=== PATIENT | female | born 1945 | race Caucasian/White ===

== ENCOUNTER 2024-03-02 10:50 | Outpatient (CLI) | payer MEDICARE, OTHER | END 2024-03-02 23:59 | disposition critical access hospital (66) | LOC: EMS 10:50 | DX: R41.3 Other amnesia (principal) | CPT/HCPCS: A0425; A0429 ==

== ENCOUNTER 2024-03-02 11:27 | Emergency (ER) | payer MEDICARE, OTHER ==
--- NOTE | 2024-03-02 12:07 | ED Physician Documentation ---
History of Present Illness - Stated complaint Stated Complaint: AMS/MEMORY LOSS - Chief complaint Chief Complaint: Neuro - History obtained from History obtained from: Patient, Family - Treatment prior to arrival Treatment prior to arrival: Patient is a 78-year-old female presenting to the emergency department with past medical history remarkable for asthma, DINA presenting to the emergency department with significant shortness of breath that has been going on for multiple weeks but worsened within the last few days. Patient has used her nebulizer multiple times up to 6 times within the last 2 days. She notes some wheezing at home orthopnea and mild leg swelling. She on arrival has been saturating on room air at 98% no tachycardia or tachypnea noted. Decreased breath sounds on auscultation of the lungs. 1 + pitting edema notd to lower extremities Patient had positive troponin of 17.9 here in the emergency department. EKG does show left bundle branch block unsure if this is new patient does have history of pacemaker in place. - Additonal information Additional information: Patient is a 78-year-old female presenting to the emergency department history significant for asthma, atrial fibrillation, pacemaker in place presents to the emergency department with shortness of breath confusion. Patient has been increasing the use of her nebulizers at home for the last 2 days. She notes she has been struggling with a cough going on for about 3 weeks now. She describes as nonproductive she denies any chest pain with it. She notes some wheezing at home and has been using her nebulizer up to 6 times a day. She has some mild leg swelling orthopnea x 2. Patient has history significant for DINA as well but has been compliant with her CPAP at home. She denies any fevers chills nausea or vomiting. PD PAST MEDICAL HISTORY - Past Medical History Cardiovascular: Hypertension, Atrial fibrillation Respiratory: Asthma, Pneumonia, Sleep apnea, CPAP use - Past Surgical History Ortho: Knee replacement Cardiovascular: Pacemaker - Present Medications Home Medications: Ambulatory Orders Medication Instructions Recorded Confirmed Albuterol Sulf [Ventolin Hfa 1 - 2 puffs INH Q4HR PRN 03/02/24 03/02/24 Inhaler] Apixaban [Eliquis] 5 mg PO BID 03/02/24 03/02/24 Benralizumab [Fasenra Pen] 30 mg SQ ONCE 03/02/24 03/02/24 Benzonatate [Tessalon] 100 mg PO TID #7 cap 03/02/24 Budesonide/Formoterol Fumarate 2 puffs INH BID 03/02/24 03/02/24 [Breyna 160-4.5 Mcg Inhaler] Cetirizine [ZyrTEC] 10 mg PO DAILY 03/02/24 03/02/24 Dapagliflozin Propanediol [Farxiga] 10 mg PO DAILY 03/02/24 03/02/24 Furosemide [Lasix] 20 mg PO DAILY 03/02/24 03/02/24 Gabapentin [Neurontin] 600 mg PO TID 03/02/24 03/02/24 Lisinopril [Zestril] 5 mg PO BID 03/02/24 03/02/24 Metoprolol Succinate [Kapspargo 25 mg PO BID 03/02/24 03/02/24 Sprinkle] Montelukast [Singulair] 10 mg PO QPM 03/02/24 03/02/24 Potassium Chloride [Micro-K] 10 meq PO DAILY 03/02/24 03/02/24 Zinc Gluconate [Zinc] 220 mg PO DAILY 03/02/24 03/02/24 amLODIPine [Norvasc] 5 mg PO BID 03/02/24 03/02/24 - Allergies Allergies/Adverse Reactions: Allergies Allergy/AdvReac Type Severity Reaction Status Date / Time No Known Drug Allergies Allergy Verified 03/02/24 11:38 - Social History Does the pt smoke?: No Smoking Status: Never smoker Does the pt drink ETOH?: Yes Does the pt have substance abuse?: No PD ED PE NORMAL - Vitals Vital signs reviewed: Yes - General General: Alert and oriented X 3, No acute distress - HEENT HEENT: Atraumatic, PERRL, EOMI, Ears normal, Moist mucous membranes, Pharynx benign - Neck Neck: Supple, no meningeal sign, No JVD - Cardiac Cardiac: RRR, No murmur, No gallop - Respiratory Respiratory: No respiratory distress, Other (Diminished breath sounds bilaterally. No appreciable expiratory wheeze on auscultation no rhonchi or rales on auscultation.) - Abdomen Abdomen: Normal bowel sounds, Soft - Derm Derm: Normal color, Warm and dry, No rash - Neuro Neuro: Alert and oriented X 3 Verbal: Oriented (Patient able to provide history appears in no acute distress he will answer questions and is ANO x 3.) Results - Vitals Vitals: Vital Signs - 24 hr 03/02/24 03/02/24 03/02/24 11:31 13:17 15:28 Temperature 36.6 C Heart Rate 65 70 60 Respiratory 20 22 21 Rate Blood Pressure 122/106 H 149/80 H O2 Saturation 96 94 If not protocol 94 : Oxygen Flow, liters/minute Oxygen O2 Source Room air - Labs Labs: Laboratory Tests 03/02/24 03/02/24 03/02/24 12:10 12:10 12:10 WBC 10.2 RBC 5.45 H Hgb 14.4 Hct 48.3 H MCV 88.6 MCH 26.4 L MCHC 29.8 L RDW 15.5 H Plt Count MPV 11.0 H Neut # (Auto) 8.1 H Lymph # (Auto) 1.2 L Glasscock # (Auto) 0.9 Eos # (Auto) 0.0 Baso # (Auto) 0.0 Absolute Nucleated RBC 0.00 Nucleated RBC % 0.0 Manual Slide Review Indicated Platelet Estimate NORMAL (130-450,000) Platelet Morphology PLATELET CLUMPING RBC Morph Micro Appear NORMAL APPEARANCE PT 16.8 H INR 1.6 H VBG pH VBG pCO2 VBG pO2 VBG HCO3 VBG Total CO2 VBG O2 Saturation VBG Base Excess Sodium 140 Potassium 3.6 Chloride 108 Carbon Dioxide 22 Anion Gap 10.0 BUN 15 Creatinine 0.6 Estimated GFR (MDRD) 97 Glucose 150 H Lactic Acid Calcium 9.6 Magnesium 1.9 Total Bilirubin 1.0 AST 17 ALT 14 Alkaline Phosphatase 85 Troponin I High Sens B-Natriuretic Peptide Total Protein 7.3 Albumin 4.6 Globulin 2.7 Albumin/Globulin Ratio 1.7 Urine Color Urine Clarity Urine pH Ur Specific [place] Urine Protein Urine Glucose (UA) Urine Ketones Urine Occult Blood Urine Nitrite Urine Bilirubin Urine Urobilinogen Ur Leukocyte Esterase Ur Microscopic Review Urine Culture Comments 03/02/24 03/02/24 03/02/24 12:10 12:10 12:10 WBC RBC Hgb Hct MCV MCH MCHC RDW Plt Count MPV Neut # (Auto) Lymph # (Auto) Glasscock # (Auto) Eos # (Auto) Baso # (Auto) Absolute Nucleated RBC Nucleated RBC % Manual Slide Review Platelet Estimate Platelet Morphology RBC Morph Micro Appear PT INR VBG pH 7.447 H VBG pCO2 27.6 L VBG pO2 55.1 H VBG HCO3 18.6 L VBG Total CO2 19.5 L VBG O2 Saturation 90.1 H VBG Base Excess -3.7 L Sodium Potassium Chloride Carbon Dioxide Anion Gap BUN Creatinine Estimated GFR (MDRD) Glucose Lactic Acid 1.4 Calcium Magnesium Total Bilirubin AST ALT Alkaline Phosphatase Troponin I High Sens 17.8 H* B-Natriuretic Peptide Total Protein Albumin Globulin Albumin/Globulin Ratio Urine Color Urine Clarity Urine pH Ur Specific [place] Urine Protein Urine Glucose (UA) Urine Ketones Urine Occult Blood Urine Nitrite Urine Bilirubin Urine Urobilinogen Ur Leukocyte Esterase Ur Microscopic Review Urine Culture Comments 03/02/24 03/02/24 03/02/24 12:10 12:47 13:50 WBC RBC Hgb Hct MCV MCH MCHC RDW Plt Count MPV Neut # (Auto) Lymph # (Auto) [place]cock # (Auto) Eos # (Auto) Baso # (Auto) Absolute Nucleated RBC Nucleated RBC % Manual Slide Review Platelet Estimate Platelet Morphology RBC Morph Micro Appear PT INR VBG pH VBG pCO2 VBG pO2 VBG HCO3 VBG Total CO2 VBG O2 Saturation VBG Base Excess Sodium Potassium Chloride Carbon Dioxide Anion Gap BUN Creatinine Estimated GFR (MDRD) Glucose Lactic Acid Calcium Magnesium Total Bilirubin AST ALT Alkaline Phosphatase Troponin I High Sens 19.7 H* B-Natriuretic Peptide 779 H Total Protein Albumin Globulin Albumin/Globulin Ratio Urine Color YELLOW Urine Clarity CLEAR Urine pH 6.0 Ur Specific [place] 1.020 Urine Protein TRACE Urine Glucose (UA) >=1000 H Urine Ketones NEGATIVE Urine Occult Blood TRACE-INTA Urine Nitrite NEGATIVE Urine Bilirubin NEGATIVE Urine Urobilinogen 0.2 (NORMAL) Ur Leukocyte Esterase NEGATIVE Ur Microscopic Review NOT INDICATED Urine Culture Comments NOT INDICATED PD Medical Decision Making - ED course ED course: Patient is a 78-year-old female presenting to the emergency department with past medical history remarkable for asthma, DINA presenting to the emergency department with significant shortness of breath that has been going on for multiple weeks but worsened within the last few days. Patient has used her nebulizer multiple times up to 6 times within the last 2 days. She notes some wheezing at home orthopnea and mild leg swelling. She on arrival has been saturating on room air at 98% no tachycardia or tachypnea noted. Decreased breath sounds on auscultation of the lungs. 1 + pitting edema notd to lower extremities Patient had positive troponin of 17.9 here in the emergency department. EKG does show left bundle branch block unsure if this is new patient does have history of pacemaker in place. EKG shows no positive scarbosa criteria. She is also currently denying any chest pain at this time. Chest X-ray shows: Cardiomegaly and mild congestion. Small right pleural effusion. No definite focal infiltrate. No pneumothorax. Patient received breathing treatment here in the emergency department has significant improvement in shortness of breath however given concern for fluid overload with elevated BNP 700s and chest x-ray showing cardiomegaly with mild congestion patient given 40 of Lasix orally as she declined IV. Pending CT scan of head at this time given concern for altered mental status from on arrival. Patient pending CT scan at this time reevaluated patient she is anxious to leave requesting to go home without head CT. Patient is back to baseline she is ANO x 3. She feels significantly brother no decreased breath sounds no appreciable wheezing no rhonchi or rales on reauscultation of the lungs. Patient was given oral 40 of Lasix here in the emergency department she has been urinating well. She denies any other symptoms at this time she feels safe to go home. She has appointments with her archeology faculty member and emergency service worker set up to follow-up with an outpatient setting. Will give patient course of Tessalon Perles for her persistent cough that she has nebulizers at home for shortness of breath and will continue with her Lasix as prescribed at home. Instructed patient to return to the emergency department with any new or worsening symptoms.Patient understands leaving prior to head CT is against recommendations at this time. She understands and will return with any changes in mental status head ache nu mbness tingling weakness or any other new or worsening symptoms. Departure - Departure Disposition: 01 Home, Self Care Clinical Impression: Acute CHF (congestive heart failure), Acute asthma exacerbation Condition: Good Instructions: Asthma Dc, Heart Failure Dc Prescriptions: Benzonatate [Tessalon] 100 mg PO TID #7 cap Comments: Your workup here in the emergency department with consistent with fluid overload I have given you Lasix here in the emergency department and have given you Tessalon Perles for cough as a prescription and you need to follow-up with your archeology faculty member in the outpatient setting. We discussed obtaining head CT here in the emergency department however you declined if you develop any changes in mental status dizziness headaches vision changes numbness tingling or weakness return to the emergency department. Continue breathing treatments as instructed at home. Follow-up with your emergency service worker as scheduled Forms: PCP List
[2024-03-02 12:17] LABS: BASOPHILS % (AUTO) 0.1 %; HCT - HEMATOCRIT 48.3 % (37.0-47.0); HGB - HEMOGLOBIN 14.4 g/dL (12.0-16.0); LYMPHOCYTES # (AUTO) 1.2 10^3/uL (1.5-3.5); LYMPHOCYTES % (AUTO) 11.4 %; MEAN CORPUSCULAR HEMOGLOBIN 26.4 pg (27.0-31.0); MEAN CORPUSCULAR HGB CONC 29.8 g/dL (32.0-36.0); MEAN CORPUSCULAR VOLUME 88.6 fL (81.0-99.0); MONOCYTES # (AUTO) 0.9 10^3/uL (0.0-1.0); MONOCYTES % (AUTO) 8.6 %; NEUTROPHILS # (AUTO) 8.1 10^3/uL (1.5-6.6); NEUTROPHILS % (AUTO) 79.4 %; RED BLOOD COUNT 5.45 10^6/uL (4.20-5.40); RED CELL DISTRIBUTION WIDTH 15.5 % (12.0-15.0); VBG PCO2 27.6 mmHg (41-51); VBG PH 7.447 (7.31-7.41); VBG PO2 55.1 mmHg (25-47); WHITE BLOOD COUNT 10.2 x10^3/uL (4.8-10.8)
[2024-03-02 12:18] LABS: VBG BASE EXCESS -3.7 mmol/L (-2 - +2); VBG HCO3 18.6 mmol/L (23-28); VBG OXYGEN SATURATION 90.1 % (60-80); VBG TOTAL CO2 19.5 mmol/L (24-29)
[2024-03-02 12:20] LABS: INR 1.6 (0.8-1.2); PT - PROTHROMBIN TIME 16.8 secs (9.9-12.6)
[2024-03-02 12:23] LABS: SLIDE REVIEW? Indicated
[2024-03-02 12:35] LABS: PLATELET ESTIMATE, MANUAL NORMAL (130-450,000) (NORMAL); PLATELET MORPHOLOGY PLATELET CLUMPING (NORMAL); RBC MORPHOLOGY (MULTIPLE) NORMAL APPEARANCE (NORMAL)
[2024-03-02 12:43] LABS: ALBUMIN 4.6 g/dL (3.2-5.5); ALBUMIN/GLOBULIN RATIO 1.7 (1.0-2.2); CALCIUM 9.6 mg/dL (8.5-10.3); CREATININE 0.6 mg/dL (0.6-1.3); MAGNESIUM 1.9 mg/dL (1.7-2.3); POTASSIUM 3.6 mmol/L (3.5-4.5); TOTAL PROTEIN 7.3 g/dL (6.4-8.9)
--- NOTE | 2024-03-02 12:49 | XRAY Report ---
PROCEDURE: Chest 1V INDICATIONS: shortness of breath TECHNIQUE: One view of the chest was acquired. COMPARISON: None. FINDINGS: Surgical changes and devices: Left chest wall pacemaker leads are in the region of right atrium and right ventricle.. Lungs and pleura: Pulmonary vascular congestion is seen. Small right pleural effusion is seen with b lunting of right costophrenic angle. No pneumothorax. No definite focal infiltrate. Mediastinum: Mediastinal contours appear normal. Heart size is enlarged. Bones and chest wall: No suspicious bony lesions. Overlying soft tissues appear unremarkable. IMPRESSION: Cardiomegaly and mild congestion. Small right pleural effusion. No definite focal infiltrate. No pneu mothorax. Reviewed by: Abdelrahman Crockett MD on 03/02/2024 12:48 PM PDT Approved by: Abdelrahman Crockett MD on 03/02/2024 12:48 PM PDT Station ID: [id number]
[2024-03-02 13:01] LABS: BILIRUBIN,URINE NEGATIVE (NEGATIVE); GLUCOSE, URINE (UA) >=1000 mg/dL (NEGATIVE); KETONES,URINE (UA) NEGATIVE (NEGATIVE); LEUKOCYTE ESTERASE, URINE NEGATIVE (NEGATIVE); NITRITE,URINE NEGATIVE (NEGATIVE); OCCULT BLOOD,URINE TRACE-INTA (NEGATIVE); PROTEIN,URINE TRACE mg/dL (NEGATIVE); UROBILINOGEN,URINE 0.2 (NORMAL) E.U./dL (NORMAL)
[2024-03-02 13:03] LABS: CLARITY,URINE CLEAR (CLEAR)
[2024-03-02] MEDS: IPRATROPIUM/ALBUTEROL 3 ML NEB INH STA (13:14)
[2024-03-02] MEDS ORDERED: FUROSEMIDE 40 MG TABLET PO ONE (15:15)
[2024-03-02] MEDS: FUROSEMIDE 20 MG/2 ML VIAL IVP STA (15:23)
[2024-03-02] MEDS: FUROSEMIDE 20 MG TABLET PO STA (15:27)
[2024-03-02 15:34] VITALS: BP 149/80; O2SAT 94
== END 2024-03-02 18:45 | disposition home or self-care (01) ==
LOC: ED 11:27
DX: I11.0 Hypertensive heart disease with heart failure (principal); I50.9 Heart failure, unspecified; J45.901 Unspecified asthma with (acute) exacerbation; I48.91 Unspecified atrial fibrillation; Z95.0 Presence of cardiac pacemaker; Z79.01 Long term (current) use of anticoagulants; Z79.899 Other long term (current) drug therapy
CPT/HCPCS: 36415; 71045; 80053; 81003; 82803; 83605; 83735; 83880; 84484; 85025; 85610; 93005; 94640; 99284; A9270; 81001; 87086